=== PATIENT | female | born 2000 | race American Indian/Alaskan Native ===

== ENCOUNTER 2020-01-23 07:18 | Emergency (ER) | payer SELFPAY ==
[2020-01-23 07:28] VITALS: BP 105/64
--- NOTE | 2020-01-23 08:32 | Emergency Department Report ---
Chief Complaint: Medical Clearance Stated Complaint: STD EXPOSURE Time Seen by Provider: 01/23/20 08:17 - HPI History of Present Illness: This is a 19-year-old female who presents to the ED for STD screening. Patient states that she has no symptoms she just wanted to get tested before she went back to work. She denies fever/chills/abdominal pain/nausea vomiting/vaginal discharge, pelvic pain, abnormal vaginal bleeding - ROS Review of Systems: As noted in HPI - Exam Vital Signs: Vital Signs 01/23/20 07:25 Temperature 98.1 F Pulse Rate 74 Respiratory 19 Rate Blood Pressure 105/64 O2 Sat by Pulse 100 Oximetry Physical Exam: GENERAL: Alert and oriented x3, no apparent distress, Normal Gait, atraumatic. SKIN: Warm and dry, No lesions, No ulceration or induration present. MSE screening note: Focused history and physical exam performed. Due to findings the following was ordered: ED Medical Decision Making - Medical Decision Making 19-year-old female presents for STD screening with no symptoms. Discussed with patient will be given resources where she may be able to get tested. Vital signs are normal patient is in no acute distress. She understands instructions and states she will follow-up with these referrals for STD testing. ED Disposition for MSE Clinical Impression: Screening for STD (sexually transmitted disease) Disposition: - TO HOME OR SELFCARE Is pt being admited?: No Does the pt Need Aspirin: No Condition: Stable Instructions: Safe Sex (ED) Additional Instructions: Follow-up with the medical referrals as given for your STD screening. You may also follow-up with the clinic in [facility] for STD screening. Referrals: [facility] [Outside] - 3-5 Days [facility] [Outside] - 3-5 Days [facility] [Provider Group] - 3-5 Days Forms: Work/School Release Form(ED) Time of Disposition: 08:29
== END 2020-01-23 08:41 | disposition home or self-care (01) ==
LOC: ED 07:18
DX: Z11.3 Encounter for screening for infections with a predominantly sexual mode of transmission (principal)
CPT/HCPCS: 99281